=== PATIENT | male | born 1970 | race Caucasian/White ===

== ENCOUNTER 2016-12-07 16:42 | Emergency (ER) | payer BC ==
[~2016-12-07] VITALS: Ht 193 cm; Wt 94.0 kg
[~2016-12-07 16:42] MED LIST: FEXO180 PO; FLUT1SPR9; TRAM50 PO
[2016-12-07 16:55] VITALS: BP 128/84; PULSE 86; RESP 14; TEMP 98.5; O2SAT 97
[2016-12-07] MEDS ORDERED: ACETAMINOPHEN/HYDROcodone 325 MG/5 MG TAB PO ONE (17:15)
--- NOTE | 2016-12-07 17:24 | PD ---
HPI Chief Complaint: Chest Pain Time Seen by Provider: 16:58 Travel History International Travel<30 days: No Contact w/Intl Traveler<30days: No Traveled to known affect area: No History of Present Illness HPI Patient is a 46-year-old male who presents to emergency room for evaluation of chest wall pain. Patient reports that he was lifting up flower pots from the floor and was putting them into his truck, reports that he was bending over with all the weight in his chest, reports that he heard a "pop" sound and began to have chest wall pain. Reports pain that he has pain to his xiphoid process and reports point tenderness to his anterior chest wall. Reports that it hurts so much, it is hard for him to take a deep breath. Patient denies hx of htn, hyperlipidemia, coronary artery disease, denies history of myocardial infarction or heart disease. Patient reports no family history of heart disease or early coronary disease or [place]. He is a nonsmoker. Patient reports that his chest wall pain began after he was bending over in his truck today. Patient has not tried taking any medications for relief of symptoms PFSH Past Medical History Heart Rhythm Problems: Yes (VSD AT ) Cancer: No Diabetes: No Diminished Hearing: No Glaucoma: No Hepatitis: No Hiatal Hernia: No Hypertension: No Respiratory: No Immunizations Current: Yes Thyroid Disease: No Tetanus Vaccination: > 5 Years Influenza Vaccination: No Past Surgical History Oral Surgery: Yes (WISDOM TEETH EXTRACTED) Pacemaker: No Other Surgery: Yes (VSD @ ) Social History Alcohol Use: No Tobacco Use: No Substance Use: No Allergies-Medications (Allergen,Severity, Reaction): Coded Allergies: Aspirin (Unverified Allergy, Severe, ANAPHYLAXIS, 12/07/16) Montelukast (Verified Allergy, Severe, Rash, 12/07/16) Nonsteroidal Anti-Inflammatory Agts (Verified Allergy, Severe, ANAPHYLAXIS , 12/07/16) Sulfa (Verified Allergy, Severe, RASH, 12/07/16) Vancomycin (Verified Allergy, Intermediate, Chest Pain, 12/07/16) SEVERE HEADACHE, BLURRED VISION Reported Meds & Prescriptions Reported Meds & Active Scripts Active Lortab (Hydrocodone-Acetaminophen) 5-325 Mg Tab 1 Tab PO Q6H PRN Reported Ultram (Tramadol HCl) 50 Mg Tab 50 Mg PO Q4H PRN FOR PAIN Flonase Allergy Relief Ch (Fluticasone Propionate (Nasal)) 50 Mcg/Act Spr 2 [place] NA DAILY Yanna Allergy (Fexofenadine Hydrochloride) 180 Mg Tab 180 Mg PO DAILY Review of Systems General / Constitutional: No: Fever Eyes: No: Visual changes HENT: No: Headaches Cardiovascular: Positive: Chest Pain or Discomfort Respiratory: No: Shortness of Breath Gastrointestinal: No: Abdominal Pain Genitourinary: No: Dysuria Musculoskeletal: No: Pain Skin: No Rash Neurologic: No: Weakness Psychiatric: No: Depression Endocrine: No: Polydipsia Hematologic/Lymphatic: No: Easy Bruising Physical Exam Narrative GENERAL: No acute distress, nontoxic SKIN: Focused skin assessment warm/dry. HEAD: Atraumatic. Normocephalic. EYES: Pupils equal and round. No scleral icterus. No injection or drainage. ENT: No nasal bleeding or discharge. Mucous membranes pink and moist. NECK: Trachea midline. No JVD. CARDIOVASCULAR: Regular rate and rhythm. No murmur appreciated. Patient point tenderness to his sternum, patient with reproducible pain on palpation of anterior chest wall, no bruising or hematoma on exam RESPIRATORY: No accessory muscle use. Clear to auscultation. Breath sounds equal bilaterally. GASTROINTESTINAL: Abdomen soft, non-tender, nondistended. Hepatic and splenic margins not palpable. MUSCULOSKELETAL: No obvious deformities. No clubbing. No cyanosis. No edema. NEUROLOGICAL: Awake and alert. No obvious cranial nerve deficits. Motor grossly within normal limits. Normal speech. PSYCHIATRIC: Appropriate mood and affect; insight and judgment normal. Data Data Last Documented VS Vital Signs Date Time Temp Pulse Resp B/P Pulse Ox O2 Delivery O2 Flow Rate FiO2 12/07/16 16:55 98.5 86 14 128/84 97 Orders Electrocardiogram (12/07/16 ) Chest, Pa & Lat (12/07/16 17:04) Acetamin-Hydrocod 325-5 Mg ([place] 5-325 (12/07/16 17:15) MDM Medical Decision Making Medical Screen Exam Complete: Yes Emergency Medical Condition: Yes Interpretation(s) EKG at 1704: Normal sinus rhythm at 75 beats minute, QT/QTC 348/374, no acute st or t wave changes Vital Signs Date Time Temp Pulse Resp B/P Pulse Ox O2 Delivery O2 Flow Rate FiO2 12/07/16 16:55 98.5 86 14 128/84 97 Differential Diagnosis Chest wall strain, costochondritis, ACS though unlikely, and xiphoid fracture, pneumothorax, rib fracture Narrative Course Patient is a 46-year-old male who presents to emergency room with complaints of chest wall pain. Patient reports that a few hours prior to presenting to the emergency room, he was lifting baby who plants into his truck. Reports that while he was bending over to put these plants into his truck, he heard a "pop" in his anterior chest wall. Denies diaphoresis, n/v with symptoms. Reports that symptoms have been persistent since this afternoon. Patient with no history of coronary disease, [place], hypertension or hyperlipidemia. Patient does have point tenderness to his xiphoid process on evaluation, patient with most likely musculoskeletal chest pain. X-ray of the chest was ordered to rule out pneumothorax versus xiphoid fracture, versus rib fracture. EKG ordered to rule out ACS although this diagnosis is unlikely given his history and clinical evaluation. EKG at 1704: Normal sinus rhythm at 75 beats minute, QT/QTC 348/374, no acute st or t wave changes Last Impressions Chest X-Ray 12/07/16 1704 Signed Impressions: Service Date/Time: Wednesday, December 07, 2016 17:18 - CONCLUSION: The lungs are clear. No evidence of pneumothorax. Leobardo Acevedo MD Patient feeling better while in the emergency room, patient with most likely costochondritis, patient follow up with his primary care doctor return to emergency room as needed Diagnosis Primary Impression: Costochondritis Patient Instructions: General Instructions, Narcotic given in the ED Additional Instructions: Please return to emergency room as needed Please follow-up with your primary care doctor Do not drive or operate heavy machinery while taking narcotic pain medications Med/Other Pt SpecificInfo: Prescription(s) given Scripts Hydrocodone-Acetaminophen (Lortab)5-325 Mg Tab1 Tab PO Q6H PRN (PAIN) #10 TAB Ref 0 Prov:Liana Tapia DO 12/07/16 Disposition: 01 DISCHARGE HOME Condition: Stable Liana Tapia DO Dec 07, 2016 17:24
--- NOTE | 2016-12-07 17:56 | RADHPO ---
EXAM DATE/TIME: 12/07/2016 17:18 [facility] COMPARISON: No previous studies available for comparison. INDICATIONS : Mid chest and rib pain. Patient states he leaned over and felt a pop in the middle of his chest. MEDICAL HISTORY : None. SURGICAL HISTORY : None. ENCOUNTER: Initial ACUITY: 1 day PAIN SCORE: 7/10 LOCATION: Bilateral chest FINDINGS: PA and lateral views of the chest demonstrate the lungs to be symmetrically aerated without evidence of mass, infiltrate or effusion. The cardiomediastinal contours are unremarkable. Osseous structure s are intact. CONCLUSION: The lungs are clear. No evidence of pneumothorax. Leobardo Acevedo MD on December 07, 2016 at 17:54 Board Certified Radiologist. This report was verified electronically.
[2016-12-07] MEDS ORDERED: HYDR-3533 PO (18:10)
[2016-12-07 18:28] VITALS: BP 140/84
--- NOTE | 2016-12-07 23:55 | EKG ---
Date Performed: 12/07/2016 Time Performed: 17:03:42 PTAGE: 46 years EKG: Sinus rhythm with PAC(s) Borderline ECG PREVIOUS TRACING : 06/30/2015 12.51 DOCTOR: Dilan Nieves Interpretating Date/Time 12/07/2016 23:54:39
== END 2016-12-07 18:28 | disposition home or self-care (01) ==
LOC: PHED 16:42
DX: M94.0 Chondrocostal junction syndrome [Tietze] (principal)
CPT/HCPCS: 71020; 93005

== ENCOUNTER 2017-08-07 16:26 | Emergency (ER) | payer BC ==
[~2017-08-07] VITALS: Ht 193 cm; Wt 91.0 kg
[~2017-08-07 16:26] MED LIST changes: +HYDR-3533 PO
[2017-08-07 16:29] VITALS: BP 140/83; PULSE 72; RESP 16; TEMP 97.9; O2SAT 99
[2017-08-07] MEDS ORDERED: FLUT50SP EACH NARE (16:47)
[2017-08-07] MEDS ORDERED: FEXO180T PO (16:47)
[2017-08-07] MEDS ORDERED: BENZ100 PO (17:11)
--- NOTE | 2017-08-07 17:11 | PD ---
HPI Chief Complaint: Cold / Flu Symptoms Time Seen by Provider: 16:56 Travel History International Travel<30 days: No Contact w/Intl Traveler<30days: No Traveled to known affect area: No History of Present Illness HPI 47 -year-old male with nasal congestion, sore throat, cough, nausea, diarrhea 3 days. He reports no sick contacts at home. Symptom severity is mild. No aggravating or alleviating factors. He denies fever or chills, headache, chest pain, shortness of breath, abdominal pain. PFSH Past Medical History Hx Anticoagulant Therapy: No Heart Rhythm Problems: Yes (VSD AT ) Cancer: No Diabetes: No Diminished Hearing: No Glaucoma: No Hepatitis: No Hiatal Hernia: No Hypertension: No Medical other: Yes (VSD LEFT VENTRICLE AN ,SPONTANEOUSLY CLOSED) Respiratory: No Immunizations Current: Yes Thyroid Disease: No Past Surgical History Oral Surgery: Yes (WISDOM TEETH EXTRACTED) Pacemaker: No Other Surgery: Yes (VSD @ ) Social History Alcohol Use: No Tobacco Use: No Substance Use: No Allergies-Medications (Allergen,Severity, Reaction): Coded Allergies: Sulfa (Sulfonamide Antibiotics) (Unverified Allergy, Severe, RASH, ) aspirin (Unverified Allergy, Severe, ANAPHYLAXIS, 08/07/17) diclofenac (Unverified Allergy, Severe, ANAPHYLAXIS, 08/07/17) etodolac (Unverified Allergy, Severe, ANAPHYLAXIS, 08/07/17) flurbiprofen (Unverified Allergy, Severe, ANAPHYLAXIS, 08/07/17) ibuprofen (Unverified Allergy, Severe, ANAPHYLAXIS, 08/07/17) indomethacin (Unverified Allergy, Severe, ANAPHYLAXIS, 08/07/17) ketoprofen (Unverified Allergy, Severe, ANAPHYLAXIS, 08/07/17) ketorolac (Unverified Allergy, Severe, ANAPHYLAXIS, 08/07/17) montelukast (Unverified Allergy, Severe, Rash, 08/07/17) naproxen (Unverified Allergy, Severe, ANAPHYLAXIS, 08/07/17) oxaprozin (Unverified Allergy, Severe, ANAPHYLAXIS, 08/07/17) vancomycin (Unverified Allergy, Intermediate, Chest Pain, 08/07/17) SEVERE HEADACHE, BLURRED VISION Reported Meds & Prescriptions Reported Meds & Active Scripts Active Tessalon Perles (Benzonatate) 100 Mg Cap 100 Mg PO TID PRN 5 Days Reported Fluticasone Nasal [place] 50 Mcg/Act Naspr 50 Mcg EACH NARE DAILY 50 mcg/spray Fexofenadine (Fexofenadine HCl) 180 Mg Tab 180 Mg PO DAILY Review of Systems Except as stated in HPI: all other systems reviewed are Neg Physical Exam Narrative GENERAL: Alert well-appearing male SKIN: Warm and dry. HEAD: Normocephalic. EYES: No scleral icterus. No injection or drainage. NECK: Supple, trachea midline. No JVD or lymphadenopathy. CARDIOVASCULAR: Regular rate and rhythm without murmurs, gallops, or rubs. RESPIRATORY: Breath sounds equal bilaterally. No accessory muscle use. GASTROINTESTINAL: Abdomen soft, non-tender, nondistended. MUSCULOSKELETAL: No cyanosis, or edema. BACK: Nontender without obvious deformity. No CVA tenderness. Data Data Last Documented VS Vital Signs Date Time Temp Pulse Resp B/P (MAP) Pulse Ox O2 Delivery O2 Flow Rate FiO2 08/07/17 16:29 97.9 72 16 140/83 (102) 99 Orders Orders Ed Discharge Order (08/07/17 17:11) [facility] Medical Decision Making Medical Screen Exam Complete: Yes Emergency Medical Condition: Yes Differential Diagnosis Viral illness, influenza, bronchitis, pneumonia, gastroenteritis Narrative Course 47 -year-old male with nasal congestion, sore throat, cough, nausea, diarrhea 3 days. He is well-appearing. His vital signs are stable. His physical exam is reassuring. He appears to have viral illness. This symptomatic treatment discussed with patient. Diagnosis Primary Impression: Viral illness Referrals: [facility] Additional Instructions: Rest and stay well hydrated. Take [id number] Tylenol for body aches and fever. Take the cough medication as needed. Follow-up with her primary doctor. Scripts Benzonatate (Tessalon Perles) 100 Mg Cap 100 MG PO TID Y for COUGH for 5 Days, CAP 0 Refills Prov: Radha Treviño 08/07/17 Disposition: 01 DISCHARGE HOME Condition: Stable Radha Treviño Aug 07, 2017 17:11
== END 2017-08-07 17:23 | disposition home or self-care (01) ==
LOC: PHEFT 16:26
DX: B34.9 Viral infection, unspecified (principal)
CPT/HCPCS: 99283